=== PATIENT | female | born 1950 | race Caucasian/White ===

== ENCOUNTER → 2020-05-13 | Outpatient (CLI) | payer BC ==
[2015-07-10 15:33] VITALS: BP 124/72
[~2020-05-13] MED LIST: ALPR0.5T PO; DULO20CA50 PO
--- NOTE | 2020-05-13 15:57 | RAD ---
Bone densitometry study: Date: 05/13/2020. Indication: Screening. Procedure: DEXA study. Findings: The bone mineral density from L1 through L4 is 0.930 grams/cm squared with T-score -2.1. The bone mineral density in the right hip involving the neck of the right femur is 0.904 grams per cm squared with a T-score of -0.4. Impression: Normal mineral density in the right hip, osteopenia in the lumbar spine. Electronically signed by: John Cooley MD (05/13/2020 3:55 PM) [id number]
== END ==
LOC: DXRAD 10:07
PROVIDERS: ATTEND Family Medicine
DX: M81.8 Other osteoporosis without current pathological fracture (principal); M85.88 Other specified disorders of bone density and structure, other site
CPT/HCPCS: 77080